=== PATIENT | male | born 1985 | race Two or more races ===

== ENCOUNTER 2019-11-09 20:14 | Emergency (ER) | payer OTHER ==
[~2019-11-09] VITALS: Ht 172.1 cm; Wt 82.7 kg
[2019-11-09 23:27] LABS: BASO % 1 % (0-3); EOS # 0.3 x10^3/uL (0.0-0.7); EOS % 5 % (0-3); HEMATOCRIT 46.2 % (39.0-53.0); HEMOGLOBIN 15.8 g/dL (13.0-17.5); LYMPH # 2.2 x10^3/uL (1.0-4.8); LYMPH % 32 % (24-48); MEAN CORPUSCULAR HEMOGLOBIN 30 pg (25-35); MEAN CORPUSCULAR HGB CONC 34 g/dL (31-37); MEAN CORPUSCULAR VOLUME 87 fL (79-100); MONO # 0.6 x10^3/uL (0.0-1.1); MONO % 8 % (0-9); NEUT # 3.8 x10^3/uL (1.8-7.7); NEUT % 55 % (31-73); PLATELET COUNT 238 x10^3/uL (140-400); RED BLOOD COUNT 5.32 x10^6/uL (4.30-5.70); RED CELL DISTRIBUTION WIDTH 13.4 % (11.5-14.5); WHITE BLOOD COUNT 6.9 x10^3/uL (4.0-11.0)
[2019-11-09 23:35] LABS: CALCIUM 8.7 mg/dL (8.5-10.1); CREATININE 1.1 mg/dL (0.7-1.3); GFR 76.6; POTASSIUM 3.8 mmol/L (3.5-5.1)
[2019-11-09 23:41] LABS: ALBUMIN 3.8 g/dL (3.4-5.0); TOTAL BILIRUBIN 0.4 mg/dL (0.2-1.0); TOTAL PROTEIN 7.8 g/dL (6.4-8.2)
[2019-11-09] MEDS ORDERED: IV RINGERS,LACTATED 1000ML 1,000 ML IV ONE (23:45)
--- NOTE | 2019-11-09 23:55 | PHYS DOC ---
Past Medical History Past Medical History: No Pertinent History Past Surgical History: No Surgical History Smoking Status: Current Every Day Smoker Alcohol Use: Heavy General Adult EDM: Chief Complaint: HEADACHE HPI: HPI: The history was obtained from the patient. Patient is a 33-year-old male with no reported PMH who presents with a chief complaint of lightheadedness and headache. Patient states he had a mild headache intermittently over the past 2 days. He states that today while at work he became intermittently lightheaded. 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 He states that he has not been drinking many fluids. He notes he has felt intermittently lightheaded throughout the day and presented to an outside facility who encouraged him to be transferred to our facility for heat exhaustion. He states that he has had no vomiting but notes mild nausea. Denies neck pain. Denies fevers. Denies any chest pain or shortness of breath. Denies any vertiginous symptoms. States he thinks that he is dehydrated. Patient denies acute onset of headache reaching maximal intensity in under one hour. This is neither the worst headache that Patient has ever experienced, nor was the onset timed with exertional activity or trauma. Patient has not experienced any fever, unusual neck pain or stiffness, syncope, or near syncope. Patient denies numbness, tingling, or weakness of the extremities. Patient also denies personal history of intracranial hemorrhage (including SAH), aneurysm, or AV malformation. Review of Systems: Review of Systems: Constitutional: Denies fever or chills. [] Eyes: Denies change in visual acuity. [] HENT: Denies nasal congestion or sore throat. [] Respiratory: Denies cough or shortness of breath. [] Cardiovascular: Denies chest pain or edema. [] GI: Denies abdominal pain, nausea, vomiting, bloody stools or diarrhea. [] : Denies dysuria. [] Musculoskeletal: Denies back pain or joint pain. [] Integument: Denies rash. [] Neurologic: Positive for headache Endocrine: Denies polyuria or polydipsia. [] Lymphatic: Denies swollen glands. [] Psychiatric: Denies depression or anxiety. [] Heart Score: Risk Factors: Risk Factors: DM, Current or recent (<one month) smoker, HTN, HLP, family hi story of CAD, obesity. Risk Scores: Score 0 - 3: 2.5% MACE over next 6 weeks - Discharge Home Score 4 - 6: 20.3% MACE over next 6 weeks - Admit for Clinical Observation Score 7 - 10: 72.7% MACE over next 6 weeks - Early Invasive Strategies Current Medications: Current Medications Medications (Trade) Dose Ordered Sig/Odette Start Time Stop Time Status Last Admin Dose Admin Ringer's Solution 1,000 ml @ 1,000 mls/hr 1X ONCE 11/09/19 23:30 11/10/19 00:29 UNV Allergies: Allergies: Allergies Coded Allergies Type Severity Reaction Last Updated Verified No Known Drug Allergies 11/09/19 No Physical Exam: PE: Constitutional: Well developed, well nourished, no acute distress, non-toxic appearance. [] HENT: Normocephalic, atraumatic, bilateral external ears normal, oropharynx moist, no oral exudates, nose normal. [] Eyes: PERRLA, EOMI, conjunctiva normal, no discharge. [] Neck: Normal range of motion, no tenderness, supple, no stridor. [] Cardiovascular:Heart rate regular rhythm, no murmur [] Lungs & Thorax: Bilateral breath sounds clear to auscultation [] Abdomen: soft, no tenderness, no masses, no pulsatile masses. [] Skin: Warm, dry, no erythema, no rash. [] Back: No tenderness, no CVA tenderness. [] Extremities: No tenderness, no cyanosis, no clubbing, ROM intact, no edema. [] Neurologic: Alert with intact cognitive function. No aphasia, dysarthria, or ne glect. GCS 15. Pupils 3 mm briskly reactive b/l. No APD present. Cranial nerves 2-12 grossly intact; no facial asymmetry present, tongue midline, shoulder shrugging strength intact. Strength 5/5 and symmetric throughout. Light touch sensation intact throughout. Cerebellar testing appropriate without evidence of dysdiadochokinesia. DTR's 2+ in all 4 extremities. Negative pronator drift bilaterally. Gait normal Psychologic: Affect normal, judgement normal, mood normal. [] Current Patient Data: Labs: Laboratory Tests Test 11/09/19 22:58 White Blood Count 6.9 x10^3/uL (4.0-11.0) Red Blood Count 5.32 x10^6/uL (4.30-5.70) Hemoglobin 15.8 g/dL (13.0-17.5) Hematocrit 46.2 % (39.0-53.0) Mean Corpuscular Volume 87 fL (79-100) Mean Corpuscular Hemoglobin 30 pg (25-35) Mean Corpuscular Hemoglobin Concent 34 g/dL (31-37) Red Cell Distribution Width 13.4 % (11.5-14.5) Platelet Count 238 x10^3/uL (140-400) Neutrophils (%) (Auto) 55 % (31-73) Lymphocytes (%) (Auto) 32 % (24-48) Monocytes (%) (Auto) 8 % (0-9) Eosinophils (%) (Auto) 5 % (0-3) H Basophils (%) (Auto) 1 % (0-3) Neutrophils # (Auto) 3.8 x10^3/uL (1.8-7.7) Lymphocytes # (Auto) 2.2 x10^3/uL (1.0-4.8) Monocytes # (Auto) 0.6 x10^3/uL (0.0-1.1) Eosinophils # (Auto) 0.3 x10^3/uL (0.0-0.7) Basophils # (Auto) 0.0 x10^3/uL (0.0-0.2) Sodium Level 139 mmol/L (136-145) Potassium Level 3.8 mmol/L (3.5-5.1) Chloride Level 102 mmol/L (98-107) Carbon Dioxide Level 32 mmol/L (21-32) Anion Gap 5 (6-14) L Blood Urea Nitrogen 17 mg/dL (8-26) Creatinine 1.1 mg/dL (0.7-1.3) Estimated GFR (Cockcroft-Gault) 76.6 BUN/Creatinine Ratio 15 (6-20) Glucose Level 99 mg/dL (70-99) Calcium Level 8.7 mg/dL (8.5-10.1) Total Bilirubin 0.4 mg/dL (0.2-1.0) Aspartate Amino Transferase (AST) 21 U/L (15-37) Alanine Aminotransferase (ALT) 48 U/L (16-63) Alkaline Phosphatase 95 U/L (46-116) Creatine Kinase 134 U/L (39-308) Total Protein 7.8 g/dL (6.4-8.2) Albumin 3.8 g/dL (3.4-5.0) Albumin/Globulin Ratio 1.0 (1.0-1.7) Laboratory Tests 11/09/19 22:58 Laboratory Tests 11/09/19 22:58 Vital Signs: Vital Signs Date Time Temp Pulse Resp B/P (MAP) Pulse Ox O2 Delivery O2 Flow Rate FiO2 11/09/19 21:32 98.2 64 18 129/90 (103) 99 Room Air 98.2 EKG: EKG: EKG consistent with normal sinus rhythm. Ventricular rate of 59 bpm. Lucas normal. Flipped T wave in lead III. No acute ischemic changes appreciated. Overall normal EKG. [] Radiology/Procedures: Radiology/Procedures: [] Course & Med Decision Making: Course & Med Decision Making Pertinent Labs and Imaging studies reviewed. (See chart for details) Patient is overall well-appearing 33-year-old male who presents with a complaint of mild headache and lightheadedness over the past 2 days. He states he has not been drinking fluids at work where it is quite hot. Initial vital signs unremarkable. EKG without acute ischemic changes. Basic labs were obtained including CPK. This is normal. I do feel is reasonable to defer advanced head imaging. He states his headache is resolved completely. He has no focal neurologic deficits on initial examination on repeat examination. He has able tolerate p.o. and has been ambulatory the emergency department. Vital signs been stable. He is requesting discharge home. I do feel this is reasonable. Encouraged patient to continue drink fluids at home. He will be given a prescription for nausea medication. Return precautions discussed and understood. He was instructed to follow-up with his primary care physician in the next 2 to 3 days. Stable for discharge home. Dragon Disclaimer: Mae Disclaimer: This electronic medical record was generated, in whole or in part, using a voice recognition dictation system. Departure Departure Impression: Primary Impression: Lightheadedness Additional Impression: Headache Qualified Codes: R51 - Headache Disposition: HOME, SELF-CARE Condition: GOOD Referrals: NO PCP (PCP) Patient Instructions: Dehydration, Adult Additional Instructions: [facility] [address] [place] [address] [facility] [address] [place] [address] Family [facility] [address] [place] [address] [facility] [address] [place] [address] [facility] [address] [place] [address] [facility] [address] [place] [address] [facility] [place] [address] [place] [address] MiaSoléReplaced by [facility] [place] [address] [place] [address] Vibr[facility]placed by [facility] [address] [place] [address] [facility] [address] [place] [address] Scripts Ondansetron Hcl (ZOFRAN) 4 Mg Tablet 4 MG PO PRN TID PRN for NAUSEA, #15 nausea/vomiting Prov: UZAIR CHRISTIANSEN DO 11/10/19 Justicifation of Admission Dx: Justifications for Admission: Justification of Admission Dx: N/A UZAIR CHRISTIANSEN DO Nov 09, 2019 23:55
[2019-11-10] MEDS ORDERED: ONDA4TAB7 PO (00:55)
[2019-11-10 01:00] VITALS: BP 121/80
--- NOTE | 2019-11-10 02:59 | EKG ---
[facility] [address] [place] [address] Test Date: 2019-11-10 Test Time: 00:09:53 Pat Name: CHAN SAENZ Department: Room: Gender: M [employer]: : 1985 Requested By: UZAIR CHRISTIANSEN Order Number: [id number] Reading MD: Measurements Intervals [place] Rate: 59 P: 51 MD: 144 QRS: 26 QRSD: 86 T: 11 QT: 390 QTc: 386 Interpretive Statements SINUS RHYTHM OTHERWISE NORMAL ECG RI6.02 No previous ECG available for comparison
== END 2019-11-10 01:11 | disposition home or self-care (01) ==
LOC: ER 20:14
DX: R42 Dizziness and giddiness (principal); R51 Headache; R11.0 Nausea; F17.200 Nicotine dependence, unspecified, uncomplicated; F10.20 Alcohol dependence, uncomplicated; Y90.9 Presence of alcohol in blood, level not specified
CPT/HCPCS: 36415; 80053; 82550; 85025; 93005; 96360; 99284; J7120